=== PATIENT | female | born 1955 | race Caucasian/White ===

== ENCOUNTER 2018-12-18 10:14 | Inpatient (IN) | payer MEDICARE, BC ==
[2018-12-16 14:49] LABS: BASOPHILS # (AUTO) 0.1 X10'3 (0-0.2); BASOPHILS % (AUTO) 0.8 % (0-1); EOSINOPHILS # (AUTO) 0.1 X10'3 (0-0.9); EOSINOPHILS % (AUTO) 1.8 % (0-6); LYMPHOCYTES # (AUTO) 1.5 X10'3 (1.1-4.8); LYMPHOCYTES % (AUTO) 22.5 % (21-51); MEAN CORPUSCULAR HGB CONC 33.5 g/dL (33.0-36.5); MEAN CORPUSCULAR VOLUME 86.5 FL (78-98); MONOCYTES # (AUTO) 0.4 X10'3 (0-0.9); MONOCYTES % (AUTO) 6.4 % (2-12); NEUTROPHILS # (AUTO) 4.5 X10'3 (1.8-7.7); NEUTROPHILS % (AUTO) 68.5 % (42-75); PRE OP HEMATOCRIT 38.8 % (35.0-45.0); PRE OP PLATELET COUNT 319 X10'3 (140-440); RED BLOOD COUNT 4.49 X10'6 (4.20-5.60); RED CELL DISTRIBUTION WIDTH 13.8 % (11.5-14.5)
[2018-12-16 15:00] LABS: ALBUMIN 3.7 G/DL (3.4-5.0); ALKALINE PHOSPHATASE 87 IU/L (46-116); BLOOD UREA NITROGEN 12 MG/DL (7-18); BUN/CREATININE RATIO 16.9 (6.6-38.0); CALCIUM 9.3 MG/DL (8.5-10.1); CHLORIDE 106 MMOL/L (99-107); CREATININE 0.71 MG/DL (0.40-0.90); PRE OP ALT 40 U/L (30-65); PRE OP ANION GAP 7 (8-16); PRE OP AST 23 U/L (10-37); PRE OP BILIRUB, TOTAL 0.4 MG/DL (0.0-1.0); PRE OP GLUCOSE 121 MG/DL (70-104); PRE OP POTASSIUM 3.8 MMOL/L (3.4-5.1); PRE OP SODIUM 143 MMOL/L (135-145); TOTAL CARBON DIOXIDE 30.2 MMOL/L (24-32); TOTAL PROTEIN 7.5 G/DL (6.4-8.2); eGFR 83 ML/MIN
[2018-12-16 15:03] LABS: CLARITY,URINE SLIGHTLY CLOUDY (Clear); COLOR,URINE YELLOW (Yellow); GLUCOSE, URINE NEGATIVE (Neg); KETONES,URINE NEGATIVE (Neg); LEUKOCYTE ESTERASE ,URINE TRACE (Neg); NITRITES, URINE NEGATIVE (Neg); OCCULT BLOOD,URINE NEGATIVE (Neg); PH,URINE 5.5 (4.8-8.0); PROTEIN,URINE NEGATIVE (Neg); UROBILINOGEN,URINE 0.2 E.U/dL (0.2-1.0)
[2018-12-16 15:16] LABS: UA COLLECTION TYPE VOIDED
[2018-12-16 15:17] LABS: BACTERIA,URINE NONE SEEN /HPF (Neg); RBC,URINE NONE SEEN /HPF (0-2); SQUAMOUS EPITHELIAL CELL,UR FEW /LPF (FEW); WBC,URINE 0-4 /HPF (0-4)
[~2018-12-18] VITALS: Ht 157.5 cm; Wt 92.0 kg
[2018-12-18] VITALS (17 sets, daily range): BP systolic 115–177; BP diastolic 64–90
[~2018-12-18 10:14] MED LIST: CELE-193 PO; LOSA50TA3 PO; ceFOXitin 2 GM ADDVANTGE BAG 50 ML IV ONE; cefotetan 2gm/isosm dext IVPB 50 ML IV ONE; famotidine 20mg tablet PO ONE; meperidine/PF 25mg/ml syringe IV PRN; morphine 4 MG/ML inj SYRINge IV PRN; ondansetron/PF 4mg/2ml inj IV PRN; proCHLORperazine 10 MG/2 ml inj IV PRN; ringers solution, lacted 1,000 ML IV SCH
[2018-12-18] MEDS: ringers solution, lacted 1,000 ML IV SCH ×4 (10:57→21:44)
[2018-12-18] MEDS ORDERED: BUPIVAcaine/PF 2.5 mg/ml (0.25%) 30ml vial ONE (11:25)
[2018-12-18] MEDS ORDERED: epiNEPHrine 1 mg/ml inj ONE (11:25)
[2018-12-18] MEDS ORDERED: BUPIVAcaine/PF 2.5mg/ml (0.25%) 10ml vial ONE (11:25)
[2018-12-18] MEDS ORDERED: sevoflurane 250ml liquid IH ONE (13:06)
[2018-12-18] MEDS ORDERED: neostigmine methylsulfate 1 MG/ML 10ml vial ONE (13:06)
[2018-12-18] MEDS ORDERED: ondansetron/PF 4mg/2ml inj ONE (13:06)
[2018-12-18] MEDS ORDERED: midazolam 2 mg/2 ml injection ONE (13:14)
[2018-12-18] MEDS ORDERED: fentaNYL /PF 50mcg/ml 5ml ampule ONE (13:14)
[2018-12-18] MEDS ORDERED: propofol inj 20 ML IV ONE (13:16)
[2018-12-18] MEDS ORDERED: LIDOcaine 2% (20mg/ml) 5ml vial ONE (13:16)
[2018-12-18] MEDS ORDERED: dexamethasone sod phosphate 4mg/ml inj. ONE (13:25)
[2018-12-18] MEDS ORDERED: rocuronium 10mg/ml inj IV ONE (13:25)
[2018-12-18] MEDS ORDERED: clindamycin-Cleocin 900mg/D5W 50 ML IV ONE (13:30)
[2018-12-18] MEDS ORDERED: sodium bicarbonate (8.4%) 1 mEq/ml syringe ONE (14:00)
[2018-12-18] MEDS ORDERED: epiNEPHrine 0.1mg/ml 10ml syringe ONE ×3 (14:00)
[2018-12-18] MEDS ORDERED: sod chloride 0.9% 10ml flush syringe IV ONE ×4 (14:00)
[2018-12-18] MEDS ORDERED: dextrose 50%-water 50ml dispensing syringe IV ONE (14:00)
[2018-12-18] MEDS ORDERED: calcium chloride 100 MG/1 ML inj IV ONE ×3 (14:00)
[2018-12-18] MEDS ORDERED: DOBUTamine/D5W 500mg/250ml premix IV ONE (14:00)
[2018-12-18] MEDS ORDERED: ketorolac trometh. 30mg/ml inj. ONE (15:01)
[2018-12-18] MEDS ORDERED: metoclopramide 5 mg/ml inj IV PRN (15:05)
[2018-12-18] MEDS ORDERED: HYDROcodone/acetaminophen 10/325mg tab PO PRN (15:05)
[2018-12-18] MEDS ORDERED: LORazepam 2 mg/ml vial IV PRN (15:05)
[2018-12-18] MEDS ORDERED: temazepam 15mg capsule PO PRN (15:05)
[2018-12-18] MEDS ORDERED: magnesium hydroxide 30ml (MOM) UD suspension PO PRN (15:05)
[2018-12-18] MEDS ORDERED: diphenhydrAMINE 50 mg/ml inj IV PRN (15:05)
[2018-12-18] MEDS ORDERED: normal saline 500ml IV soln 500 ML IV PRN (15:05)
[2018-12-18] MEDS ORDERED: glycopyrrolate 0.2mg/ml inj ONE (15:07)
--- NOTE | 2018-12-18 15:16 | NUR ---
Received from OR via SURGICAL BED , accompanied by Anesthesiologist NATALY and report given by Anesthesiolgist. PATIENT WITH OLD COLOSTOMY TO LEFT SIDE OF ABDOMEN, DARÍO PAD IN PLACE. NO DRAINAGE PRESENT AT THIS TIME. PATIENT WITH 10L MASK ON WITH 97% SATURATIONS. VSS. PATIENT MEDICATED FOR PAIN UPON ARRIVAL Addendum: 12/18/18 at 1528 by Oscar Dill RN, RN Amended: Links added.
--- NOTE | 2018-12-18 16:26 | NUR ---
ALL CRITERIA FOR TRANSFER TO THE FLOOR HAS BEEN ACHIEVED. VSS. BED LOW, CALL LIGHT AND VS. SET IN PLACE. RN PRESENT TO ACCEPT CARE. PATIENT RESTING COMFORTABLY IN BED. BELONGINGS SENT WITH PATIENT. DRESSINGS CDI. ATTEMPTED TO VOID VIA BEDPAN IN BED, NO SUCCESS. GOT UP TO [facility] AND ATTEMPTED AGAIN ONLY TO HAVE 15CC OF CLEAR YELLOW URINE. PATIENT ASSISTED BACK TO BED AND BLADDER SCANNED SEVERAL TIMES ONLY TO REVEAL 39CC. MACKENZIE PENA NOTIFIED OF THIS AND WILL REPORT IT TO LINCOLN. ADDENDUM: LOW ABDOMINAL INCISION LINE IS CDI. Addendum: 12/18/18 at 1635 by Oscar Dill RN, RN Amended: Links added.
--- NOTE | 2018-12-18 16:45 | NUR ---
Patient was in room after being situated by resource nurse, Patient was started on post op vitals, incision dressing inspected and patient metal status was assessed at this time. Upon receiving patient CT took patient directly down for scan with contrast. Patient was transfered to a [facility] at this time.
[2018-12-18] MEDS ORDERED: diatrozoate meglu/diatrozoate sod (37% iodine) 120ML oral solution ONE (16:57)
[2018-12-18] MEDS ORDERED: HYDROmorphone 1 mg/ml syringe IV PRN (17:30)
--- NOTE | 2018-12-18 17:30 | NUR ---
Patient returned from CT was started back on post op vitals fluids resumed and pain was addressed.
[2018-12-18] MEDS: losartan 50mg tablet PO SCH (17:45)
[2018-12-18] MEDS: HYDROcodone/acetaminophen 10/325mg tab PO PRN (18:14)
--- NOTE | 2018-12-18 18:30 | NUR ---
Problems reprioritized. Patient report given, questions answered & plan of care reviewed with Pravin MANN.
--- NOTE | 2018-12-18 20:00 | NUR ---
PATIENT BLADDER SCAN 268ML AND VOIDED 150ML
[2018-12-18] MEDS: diatr meglu/diatrizoate 30ml oral sol.-(3 dose) bottle PO SCH (21:00)
[2018-12-18] MEDS: docusate sod 100mg capsule PO SCH (21:46)
[2018-12-19] VITALS: BP 130/73
[2018-12-19] MEDS: HYDROcodone/acetaminophen 10/325mg tab PO PRN ×2 (01:25→08:07)
[2018-12-19] MEDS: ondansetron/PF 4mg/2ml inj IV PRN ×2 (04:53→11:23)
[2018-12-19] MEDS: ringers solution, lacted 1,000 ML IV SCH ×3 (04:57→22:33)
--- NOTE | 2018-12-19 05:00 | NUR ---
BLADDER SCAN 223ML VOIDED 150ML.
[2018-12-19 05:24] LABS: BASOPHILS % (AUTO) 0 % (0-1); EOSINOPHILS % (AUTO) 0 % (0-6); HEMATOCRIT 37.9 % (35.0-45.0); LYMPHOCYTES # (AUTO) 0.6 X10'3 (1.1-4.8); LYMPHOCYTES % (AUTO) 5.4 % (21-51); MEAN CORPUSCULAR HGB CONC 34.2 g/dL (33.0-36.5); MEAN CORPUSCULAR VOLUME 84.7 FL (78-98); MEAN PLATELET VOLUME 6.7 FL (7.4-10.4); MONOCYTES # (AUTO) 0.8 X10'3 (0-0.9); MONOCYTES % (AUTO) 6.7 % (2-12); NEUTROPHILS # (AUTO) 10.2 X10'3 (1.8-7.7); NEUTROPHILS % (AUTO) 87.9 % (42-75); PLATELET COUNT 304 X10'3 (140-440); RED BLOOD COUNT 4.48 X10'6 (4.20-5.60); RED CELL DISTRIBUTION WIDTH 13.6 % (11.5-14.5); WHITE BLOOD COUNT 11.6 X10'3 (4.5-11.0)
[2018-12-19 05:26] LABS: ALBUMIN 3.1 G/DL (3.4-5.0); ANION GAP 9 (8-16); BLOOD UREA NITROGEN 12 MG/DL (7-18); BUN/CREATININE RATIO 18.8 (6.6-38.0); CALCIUM 7.7 MG/DL (8.5-10.1); CHLORIDE 105 MMOL/L (99-107); CREATININE 0.64 MG/DL (0.40-0.90); GLUCOSE 128 MG/DL (70-104); POTASSIUM 4.1 MMOL/L (3.5-5.1); SODIUM 139 MMOL/L (135-145); TOTAL CARBON DIOXIDE 24.8 MMOL/L (24-32); eGFR > 90 ML/MIN
--- NOTE | 2018-12-19 06:30 | NUR ---
Problems reprioritized. Patient report given, questions answered & plan of care reviewed with JP MANN.
[2018-12-19] MEDS: diatr meglu/diatrizoate 30ml oral sol.-(3 dose) bottle PO SCH (07:52)
[2018-12-19] MEDS: celeCOXIB 100mg capsule PO SCH (07:53)
[2018-12-19] MEDS: docusate sod 100mg capsule PO SCH ×2 (07:53→20:15)
[2018-12-19] MEDS: losartan 50mg tablet PO SCH (07:53)
[2018-12-19 08:00] VITALS: BP 130/68
[2018-12-19 11:00] VITALS: BP 116/68
--- NOTE | 2018-12-19 12:00 | NUR ---
BLADDER SCANNED 142 IN BLADDER
--- NOTE | 2018-12-19 12:53 | NUR ---
98/56 BP UNABLE TO ADMIN PAIN R/T BP
[2018-12-19 13:32] LABS: BASOPHILS % (AUTO) 0.2 % (0-1); EOSINOPHILS % (AUTO) 0 % (0-6); HEMATOCRIT 41.3 % (35.0-45.0); LYMPHOCYTES # (AUTO) 0.6 X10'3 (1.1-4.8); LYMPHOCYTES % (AUTO) 8.3 % (21-51); MEAN CORPUSCULAR HEMOGLOBIN 29.2 PG (27.0-31.0); MEAN CORPUSCULAR HGB CONC 33.9 g/dL (33.0-36.5); MEAN PLATELET VOLUME 6.8 FL (7.4-10.4); MONOCYTES # (AUTO) 0.3 X10'3 (0-0.9); MONOCYTES % (AUTO) 4.3 % (2-12); NEUTROPHILS # (AUTO) 6.3 X10'3 (1.8-7.7); NEUTROPHILS % (AUTO) 87.2 % (42-75); PLATELET COUNT 373 X10'3 (140-440); RED CELL DISTRIBUTION WIDTH 13.7 % (11.5-14.5); WHITE BLOOD COUNT 7.2 X10'3 (4.5-11.0)
--- NOTE | 2018-12-19 15:32 | NUR ---
PT. AMBULATED 600 FT. WITH FWW WITH ONE PERSON MIN. ASSIST. VOIDED 50 ML. BLADDER SCANNED 180 ML IN BLADDER.
[2018-12-19] MEDS ORDERED: oxyCODONE/APAP 10/325mg tablet PO PRN ×2 (15:40)
[2018-12-19] MEDS ORDERED: ketorolac tromethamine 15mg/ml inj. IM SCH (15:40)
[2018-12-19] MEDS ORDERED: ketorolac tromethamine 15mg/ml inj. IM PRN (15:55)
[2018-12-19] MEDS: ketorolac tromethamine 15mg/ml inj. IV PRN (16:01)
--- NOTE | 2018-12-19 18:03 | NUR ---
UPDATED ON PT'S STATUS. HE IS AWARE SHE HAS HAD 0 GAS OR OUTPUT OF COLOSTOMY, THAT THE PT. HAS HAD 1250 INTAKE AND 500 OUTPUT URINE, THAT THE PT. NOW HAS F/C, AND THAT THE PT'S MOST RECENT BP 93/51. NOT CONCERNED BECAUSE LABS SHOW PROGRESS CONCERNING H AND H. WILL CONT. TO MONITOR FOR THE REMAINDER OF MY SHIFT.
[2018-12-19 18:05] VITALS: BP 93/51
[2018-12-19 19:00] VITALS: BP 96/54
--- NOTE | 2018-12-19 19:27 | NUR ---
GAVE REPORT TO LARRY MANN.
[2018-12-19] MEDS ORDERED: furosemide 20 MG/2 ML vial IV ONE (22:00)
--- NOTE | 2018-12-19 22:00 | NUR ---
Phoned Dr. Nielsen as pts has had low urine out put 20ml of dark green/yellow in f/c despite her walking 2 laps, that her BP is 91/55 with hr of 99. No Gas or stool and hypoactive BS. Nurse voiced concern for liver problems. Dr khalida Hadley, tatiana and RAGHU for am. Addendum: 12/19/18 at 2220 by Naila Hernandez RN Amended: Links added.
[2018-12-19] MEDS: metoclopramide 5 mg/ml inj IV SCH (22:20)
[2018-12-20] VITALS (26 sets, daily range): BP systolic 68–155; BP diastolic 40–103
[2018-12-20] MEDS: metoclopramide 5 mg/ml inj IV SCH ×2 (03:03→07:15)
[2018-12-20] MEDS: ketorolac tromethamine 15mg/ml inj. IV PRN (03:44)
[2018-12-20 06:10] LABS: MEAN PLATELET VOLUME 7.5 FL (7.4-10.4)
[2018-12-20 06:12] LABS: HEMATOCRIT 38.8 % (35.0-45.0); HEMOGLOBIN 13.1 g/dl (12.0-16.0); MEAN CORPUSCULAR HEMOGLOBIN 29.4 PG (27.0-31.0); MEAN CORPUSCULAR HGB CONC 33.7 g/dL (33.0-36.5); MEAN CORPUSCULAR VOLUME 87.4 FL (78-98); PLATELET COUNT 349 X10'3 (140-440); RED BLOOD COUNT 4.44 X10'6 (4.20-5.60); RED CELL DISTRIBUTION WIDTH 14.1 % (11.5-14.5)
[2018-12-20 06:18] LABS: ALANINE AMINOTRANSFERASE 28 U/L (12-78); ALBUMIN 2.1 G/DL (3.4-5.0); ALBUMIN/GLOBULIN RATIO 0.7 (1.1-1.5); ALKALINE PHOSPHATASE 51 IU/L (46-116); ANION GAP 12 (8-16); ASPARTATE AMINO TRANSFERASE 34 U/L (10-37); BILIRUBIN,TOTAL 0.9 MG/DL (0.1-1.0); BLOOD UREA NITROGEN 34 MG/DL (7-18); BUN/CREATININE RATIO 13.9 (6.6-38.0); CALCIUM 7.5 MG/DL (8.5-10.1); CHLORIDE 102 MMOL/L (99-107); CREATININE 2.44 MG/DL (0.40-0.90); GLUCOSE 127 MG/DL (70-104); SODIUM 136 MMOL/L (135-145); TOTAL CARBON DIOXIDE 21.8 MMOL/L (24-32); TOTAL PROTEIN 5.3 G/DL (6.4-8.2); eGFR 20 ML/MIN
[2018-12-20 06:23] LABS: POTASSIUM 3.7 MMOL/L (3.5-5.1)
--- NOTE | 2018-12-20 06:57 | NUR ---
Problems reprioritized. Patient report given, questions answered & plan of care reviewed with Candy MANN. Addendum: 12/20/18 at 0658 by Naila Hernandez RN Amended: Links added.
[2018-12-20 07:02] LABS: ANISOCYTOSIS 1+; PLATELET ESTIMATE NORMAL; TOTAL CELLS COUNTED 100
[2018-12-20] MEDS: ringers solution, lacted 1,000 ML IV SCH (07:11)
[2018-12-20] MEDS: docusate sod 100mg capsule PO SCH ×2 (07:15→20:00)
[2018-12-20] MEDS: celeCOXIB 100mg capsule PO SCH (07:16)
[2018-12-20] MEDS: losartan 50mg tablet PO SCH (07:29)
[2018-12-20] MEDS ORDERED: magnesium citrate 296ml oral solution PO ONE (07:30)
[2018-12-20] MEDS: normal saline 1000ml 1,000 ML IV SCH ×3 (07:44→23:30)
[2018-12-20] MEDS ORDERED: normal saline 1000ml 1,000 ML IV ONE (09:10)
--- NOTE | 2018-12-20 09:39 | NUR ---
patient distressed when came on shift c/o of pain. B/P 87/51, HR 110, patient medicated with no effect. Seen by DR Nielsen, NS bolus ordered. chest xray and EKG. Seen then by Dr Lyons and Ngoc Higgins , to be transferred to ICU, awaiting bed.
[2018-12-20] MEDS ORDERED: metoclopramide 5 mg/ml inj IV PRN (09:40)
[2018-12-20] MEDS ORDERED: vancomycin/NS 1 GM ADD-VANTAGE 250 ML IV SCH (10:00)
--- NOTE | 2018-12-20 10:50 | NUR ---
Patient arrived to 2013 by eric, transferred to bed, and placed on monitor; sinus tachycardia, hypotensive, alert and oriented, but in extreme pain Addendum: 12/20/18 at 1103 by Nba Putnam RN in her abdomen, which is distended and bruised
--- NOTE | 2018-12-20 11:01 | NUR ---
Problems reprioritized. Patient report given, questions answered & plan of care reviewed with Nba MANN. patient transferred over to 2014a
[2018-12-20] MEDS ORDERED: vancomycin inj 500 MG in normal saline 100ml IV soln 100 ML IV ONE (11:40)
[2018-12-20 11:56] LABS: ABG BASE EXCESS -6.6 mmol/L (-2.0-3.0); ABG HCO3 18.7 mmol/L (22.0-26.0); ABG PCO2 (T) 36.9 mmHg (35.0-45.0); ABG PH (T) 7.323 (7.350-7.450); ABG PO2 (T) 63.1 mmHg (83-108); ALLEN'S TEST Positive; FCOHb 0.5 % (0.5-1.5); FLOW 6 L/min; FMetHb 0.3 % (0.3-1.12); FO2Hb 90.3 % (94-100); TOTAL HEMOGLOBIN 12.8 G/dl (12.0-16.0)
[2018-12-20 12:07] LABS: BASOPHILS % (AUTO) 0 % (0-1); EOSINOPHILS % (AUTO) 0.6 % (0-6); HEMATOCRIT 38.8 % (35.0-45.0); HEMOGLOBIN 12.9 g/dl (12.0-16.0); LYMPHOCYTES # (AUTO) 0.2 X10'3 (1.1-4.8); LYMPHOCYTES % (AUTO) 13.1 % (21-51); MEAN CORPUSCULAR HEMOGLOBIN 28.9 PG (27.0-31.0); MEAN CORPUSCULAR HGB CONC 33.2 g/dL (33.0-36.5); MEAN CORPUSCULAR VOLUME 87.2 FL (78-98); MONOCYTES % (AUTO) 2.3 % (2-12); NEUTROPHILS # (AUTO) 1.6 X10'3 (1.8-7.7); PLATELET COUNT 285 X10'3 (140-440); RED BLOOD COUNT 4.46 X10'6 (4.20-5.60); WHITE BLOOD COUNT 1.9 X10'3 (4.5-11.0)
[2018-12-20 12:22] LABS: ALANINE AMINOTRANSFERASE 29 U/L (12-78); ALBUMIN/GLOBULIN RATIO 0.6 (1.1-1.5); ALKALINE PHOSPHATASE 64 IU/L (46-116); ANION GAP 12 (8-16); ASPARTATE AMINO TRANSFERASE 49 U/L (10-37); BLOOD UREA NITROGEN 42 MG/DL (7-18); BUN/CREATININE RATIO 14.1 (6.6-38.0); CALCIUM 7.1 MG/DL (8.5-10.1); CHLORIDE 104 MMOL/L (99-107); CREATININE 2.97 MG/DL (0.40-0.90); GLUCOSE 112 MG/DL (70-104); POTASSIUM 3.3 MMOL/L (3.5-5.1); SODIUM 137 MMOL/L (135-145); TOTAL CARBON DIOXIDE 20.7 MMOL/L (24-32); TOTAL PROTEIN 5.2 G/DL (6.4-8.2); eGFR 16 ML/MIN
[2018-12-20 12:24] LABS: PARTIAL THROMBOPLASTIN TIME 33 SECONDS (22-32)
--- NOTE | 2018-12-20 12:47 | NUR ---
Critical labs reported to Dr. Mota
[2018-12-20] MEDS ORDERED: NORepinephrine 8mg/ 250ml NS 250 ML IV ONE ×2 (13:12→20:20)
[2018-12-20] MEDS ORDERED: diatr meglu/diatrizoate 30ml oral sol.-(3 dose) bottle PO STA (13:43)
[2018-12-20] MEDS ORDERED: ringers solution, lacted 1,000 ML IV SCH (13:50)
[2018-12-20] MEDS ORDERED: piperacillin/tazo 4.5gm/100ml 100 ML IV SCH (14:00)
--- NOTE | 2018-12-20 14:04 | NUR ---
patient developed slurred speech and difficulty talking. No other SS of stroke. Dr Mota notified. He wants to wait to see if she improves after getting her IV abx
[2018-12-20] MEDS: metroNIDAZOLE-Flagyl 500mg/NS 100 ML IV SCH ×2 (14:13→22:30)
[2018-12-20] MEDS ORDERED: diatr meglu/diatrizoate 30ml oral sol.-(3 dose) bottle PO ONE (15:00)
[2018-12-20 15:06] LABS: OXYGEN SATURATION (MIXED VEN) 65.9 % (60-80); PO2 MIXED VENOUS (TEMP COR) 34.2 mmHg (35-46)
[2018-12-20] MEDS ORDERED: clindamycin phosphate 150mg/ml inj. ONE (15:13)
[2018-12-20] MEDS ORDERED: LIDOcaine 1% (10mg/ml) 2ml vial ONE (15:13)
[2018-12-20] MEDS ORDERED: gentamicin 40 MG/1 ML inj ONE (15:13)
[2018-12-20] MEDS: albumin (Human) 5% 250ml 250 ML IV SCH ×4 (15:25→18:05)
--- NOTE | 2018-12-20 15:29 | NUR ---
Patient received 1L NS prior to transfer, then 1L LR.
[2018-12-20] MEDS ORDERED: fentaNYL /PF 50mcg/ml 5ml ampule ONE (15:37)
--- NOTE | 2018-12-20 15:38 | NUR ---
patient left for OR
[2018-12-20] MEDS ORDERED: ePHEDrine 50MG/ML INJ. ONE (15:42)
[2018-12-20] MEDS ORDERED: sevoflurane 250ml liquid IH ONE (15:42)
[2018-12-20] MEDS ORDERED: NORepinephrine bitartrate 8 MG in NS 250 ML BAG (32 mcg/ml) IV ONE (15:42)
[2018-12-20] MEDS ORDERED: albuterol 60 PUFF/8GM Inhaler IH ONE (15:42)
[2018-12-20] MEDS: VASOPRESSIN IV SCH (16:05)
[2018-12-20] MEDS: NS IV SCH (16:05)
[2018-12-20] MEDS: piperacillin/tazo 4.5gm/100ml 100 ML IV SCH (18:00)
[2018-12-20 18:05] LABS: ISTAT CREATININE 2.9 mg/dL (0.6-1.1); ISTAT HGB 8.2 g/dl (12.0-16.0); ISTAT IONIZED CALCIUM 0.87 mmol/L (1.03-1.32); ISTAT K 3.8 mmol/L (3.5-5.1); POC BUN/CREATININE RATIO 12.1 (6.6-38.0)
[2018-12-20 18:15] LABS: ABG BASE EXCESS -11.3 mmol/L (-2.0-3.0); ABG HCO3 15.4 mmol/L (22.0-26.0); ABG OXYGEN SATURATION 86.9 % (95-98); ABG PCO2 (T) 36.3 mmHg (35.0-45.0); ABG PH (T) 7.241 (7.350-7.450); ABG PO2 (T) 56.2 mmHg (83-108); FCOHb 0.3 % (0.5-1.5); FMetHb 0.3 % (0.3-1.12); FO2Hb 86.4 % (94-100); TOTAL HEMOGLOBIN 8.5 G/dl (12.0-16.0)
[2018-12-20 18:16] LABS: ISTAT TCO2 CONFIRMATION 13.3 mmol/l
[2018-12-20 18:56] LABS: ABG BASE EXCESS -11.9 mmol/L (-2.0-3.0); ABG HCO3 14.8 mmol/L (22.0-26.0); ABG OXYGEN SATURATION 90.2 % (95-98); ABG PCO2 (T) 33.4 mmHg (35.0-45.0); ABG PH (T) 7.252 (7.350-7.450); ABG PO2 (T) 55.5 mmHg (83-108); FCOHb 0.3 % (0.5-1.5); FMetHb 0.1 % (0.3-1.12); FO2Hb 89.8 % (94-100); TOTAL HEMOGLOBIN 9.4 G/dl (12.0-16.0)
[2018-12-20] MEDS: NORepinephrine 8mg/ 250ml NS 250 ML IV SCH (20:25)
[2018-12-20] MEDS ORDERED: rocuronium 10mg/ml inj IV ONE ×2 (20:30→20:32)
[2018-12-20] MEDS ORDERED: glycopyrrolate 0.2mg/ml inj ONE (20:31)
[2018-12-20] MEDS ORDERED: ketorolac trometh. 30mg/ml inj. ONE (20:31)
[2018-12-20] MEDS ORDERED: etomidate 2mg/ml inj. ONE (20:32)
[2018-12-20] MEDS ORDERED: propofol inj 20 ML IV ONE (20:32)
[2018-12-20] MEDS ORDERED: LIDOcaine 2% (20mg/ml) 5ml vial ONE (20:32)
[2018-12-20] MEDS ORDERED: dextrose 50%-water 50ml dispensing syringe IV ONE (20:40)
[2018-12-20 20:56] LABS: BASOPHILS % (AUTO) 0.2 % (0-1); EOSINOPHILS % (AUTO) 1.4 % (0-6); HEMATOCRIT 25.1 % (35.0-45.0); HEMOGLOBIN 8.2 g/dl (12.0-16.0); LYMPHOCYTES # (AUTO) 0.5 X10'3 (1.1-4.8); MEAN CORPUSCULAR HEMOGLOBIN 29.7 PG (27.0-31.0); MEAN CORPUSCULAR HGB CONC 32.7 g/dL (33.0-36.5); MEAN CORPUSCULAR VOLUME 90.8 FL (78-98); MEAN PLATELET VOLUME 7.4 FL (7.4-10.4); MONOCYTES % (AUTO) 2.5 % (2-12); NEUTROPHILS # (AUTO) 1.3 X10'3 (1.8-7.7); NEUTROPHILS % (AUTO) 70.9 % (42-75); PLATELET COUNT 147 X10'3 (140-440); RED BLOOD COUNT 2.77 X10'6 (4.20-5.60); RED CELL DISTRIBUTION WIDTH 14.2 % (11.5-14.5); WHITE BLOOD COUNT 1.9 X10'3 (4.5-11.0)
[2018-12-20 21:06] LABS: ABG BASE EXCESS -17.4 mmol/L (-2.0-3.0); ABG OXYGEN SATURATION 90.1 % (95-98); ABG PCO2 (T) 42.4 mmHg (35.0-45.0); ABG PH (T) 7.063 (7.350-7.450); ABG PO2 (T) 72.4 mmHg (83-108); FCOHb 0.3 % (0.5-1.5); FO2Hb 89.8 % (94-100); MINUTE VOLUME 9 L/min; PEEP 5 cm H2O; RESPIRATORY RATE 16 b/min; RESPIRATORY RATE (OBSERVED) 16 b/min; TIDAL VOLUME 525 mL; TOTAL HEMOGLOBIN 8.7 G/dl (12.0-16.0)
[2018-12-20 21:13] LABS: ALANINE AMINOTRANSFERASE 49 U/L (12-78); ALBUMIN 1.7 G/DL (3.4-5.0); ALBUMIN/GLOBULIN RATIO 1.1 (1.1-1.5); ALKALINE PHOSPHATASE 29 IU/L (46-116); ANION GAP 19 (8-16); ASPARTATE AMINO TRANSFERASE 107 U/L (10-37); BILIRUBIN,TOTAL 1.2 MG/DL (0.1-1.0); BLOOD UREA NITROGEN 38 MG/DL (7-18); BUN/CREATININE RATIO 12.8 (6.6-38.0); CHLORIDE 114 MMOL/L (99-107); CREATININE 2.96 MG/DL (0.40-0.90); GLUCOSE 66 MG/DL (70-104); POTASSIUM 4.6 MMOL/L (3.5-5.1); SODIUM 148 MMOL/L (135-145); TOTAL PROTEIN 3.3 G/DL (6.4-8.2); eGFR 16 ML/MIN
[2018-12-20 21:17] LABS: TOTAL CARBON DIOXIDE 14.6 MMOL/L (24-32)
[2018-12-20 21:22] LABS: PARTIAL THROMBOPLASTIN TIME 78 SECONDS (22-32)
[2018-12-20] MEDS ORDERED: FENTANYL-0.9 % NACL/PF 100 ML IV PRN (21:34)
[2018-12-20] MEDS ORDERED: midazolam 100mg in NS 100ml 100 ML IV PRN (21:34)
[2018-12-20] MEDS ORDERED: calcium chloride 100 MG/1 ML inj IV ONE (21:35)
[2018-12-20] MEDS: sodium bicarbonate (8.4%) inj. 75 MEQ in dextrose 5% water 500ml 500 ML IV SCH (22:00)
[2018-12-20] MEDS ORDERED: calcium chloride inj. 1,000 MG in normal saline 100ml IV soln 90 ML IV ONE (22:10)
[2018-12-20 23:11] LABS: OXYGEN SATURATION (MIXED VEN) 69.1 % (60-80)
[2018-12-20 23:11] LABS: ABG BASE EXCESS -17.9 mmol/L (-2.0-3.0); ABG HCO3 10.8 mmol/L (22.0-26.0); ABG OXYGEN SATURATION 85.8 % (95-98); ABG PCO2 (T) 35.8 mmHg (35.0-45.0); ABG PH (T) 7.095 (7.350-7.450); ABG PO2 (T) 60.2 mmHg (83-108); FCOHb 0.3 % (0.5-1.5); FMetHb 0.3 % (0.3-1.12); FO2Hb 85.3 % (94-100); MINUTE VOLUME 13 L/min; PATIENT TEMPERATURE 36.3; PEEP 5 cm H2O; RESPIRATORY RATE 20 b/min; RESPIRATORY RATE (OBSERVED) 23 b/min; TIDAL VOLUME 550 mL; TOTAL HEMOGLOBIN 9.5 G/dl (12.0-16.0)
--- NOTE | 2018-12-20 23:17 | NUR ---
2100..Received to room 2014, accompanied by Noam Edmonds and surgical crew. See assessment records. Lucia/PAline/CVPline and IVs noted in IV assessment records. All sites without redness or swelling. Vasoactive drugs infusing per [facility].
[2018-12-21] VITALS (64 sets, daily range): BP systolic 24–178; BP diastolic 6–108
[2018-12-21] MEDS: sodium bicarbonate (8.4%) inj. 75 MEQ in dextrose 5% water 500ml 500 ML IV SCH ×7 (01:17→20:55)
[2018-12-21] MEDS: NORepinephrine 8mg/ 250ml NS 250 ML IV SCH ×4 (01:17→18:38)
--- NOTE | 2018-12-21 01:26 | NUR ---
2200..Assessment as noted, Family at bedside. MD aware of current labs and medications.
[2018-12-21 03:05] LABS: BASOPHILS % (AUTO) 0.1 % (0-1); EOSINOPHILS % (AUTO) 3.7 % (0-6); HEMATOCRIT 28.2 % (35.0-45.0); HEMOGLOBIN 9.4 g/dl (12.0-16.0); LYMPHOCYTES # (AUTO) 0.4 X10'3 (1.1-4.8); LYMPHOCYTES % (AUTO) 30.2 % (21-51); MEAN CORPUSCULAR HGB CONC 33.4 g/dL (33.0-36.5); MEAN CORPUSCULAR VOLUME 89.9 FL (78-98); MONOCYTES % (AUTO) 1.9 % (2-12); NEUTROPHILS # (AUTO) 0.9 X10'3 (1.8-7.7); NEUTROPHILS % (AUTO) 64.1 % (42-75); PLATELET COUNT 127 X10'3 (140-440); RED BLOOD COUNT 3.14 X10'6 (4.20-5.60); RED CELL DISTRIBUTION WIDTH 14.3 % (11.5-14.5); WHITE BLOOD COUNT 1.3 X10'3 (4.5-11.0)
[2018-12-21 03:17] LABS: ALANINE AMINOTRANSFERASE 564 U/L (12-78); ALBUMIN 1.8 G/DL (3.4-5.0); ALKALINE PHOSPHATASE 46 IU/L (46-116); ANION GAP 22 (8-16); ASPARTATE AMINO TRANSFERASE 874 U/L (10-37); BILIRUBIN,TOTAL 1.4 MG/DL (0.1-1.0); BLOOD UREA NITROGEN 41 MG/DL (7-18); BUN/CREATININE RATIO 11.9 (6.6-38.0); CALCIUM 6.2 MG/DL (8.5-10.1); CHLORIDE 110 MMOL/L (99-107); CREATININE 3.45 MG/DL (0.40-0.90); GLUCOSE 74 MG/DL (70-104); MAGNESIUM 1.9 MG/DL (1.5-2.4); PHOSPHORUS 6.7 MG/DL (2.3-4.5); SODIUM 144 MMOL/L (135-145); TOTAL PROTEIN 3.6 G/DL (6.4-8.2); eGFR 13 ML/MIN
[2018-12-21 03:22] LABS: POTASSIUM 4.6 MMOL/L (3.5-5.1)
[2018-12-21 03:26] LABS: TOTAL CARBON DIOXIDE 11.7 MMOL/L (24-32)
[2018-12-21 03:38] LABS: PARTIAL THROMBOPLASTIN TIME 60 SECONDS (22-32)
[2018-12-21 03:45] LABS: ABG BASE EXCESS -17.7 mmol/L (-2.0-3.0); ABG HCO3 10.6 mmol/L (22.0-26.0); ABG OXYGEN SATURATION 92.5 % (95-98); ABG PCO2 (T) 33.3 mmHg (35.0-45.0); ABG PH (T) 7.116 (7.350-7.450); ABG PO2 (T) 76.7 mmHg (83-108); FCOHb 0.4 % (0.5-1.5); FMetHb 0.3 % (0.3-1.12); FO2Hb 91.9 % (94-100); MINUTE VOLUME 12 L/min; PATIENT TEMPERATURE 36.5; PEEP 5 cm H2O; RESPIRATORY RATE 20 b/min; RESPIRATORY RATE (OBSERVED) 21 b/min; TIDAL VOLUME 550 mL; TOTAL HEMOGLOBIN 9.2 G/dl (12.0-16.0)
[2018-12-21] MEDS ORDERED: albumin (Human) 5% 250ml 250 ML IV ONE ×2 (04:00→04:08)
[2018-12-21] MEDS ORDERED: calcium chloride 100 MG/1 ML inj IV ONE ×4 (04:05→17:15)
[2018-12-21 04:14] LABS: ANISOCYTOSIS 1+; NUCLEATED RED BLOOD CELLS 17 /100WBC (0-0); PLATELET ESTIMATE DECREASED; POLYCHROMASIA FEW; TOTAL CELLS COUNTED 100
[2018-12-21] MEDS ORDERED: calcium chloride inj. 1,000 MG in normal saline 100ml IV soln 90 ML IV ONE (04:15)
--- NOTE | 2018-12-21 04:42 | NUR ---
0430.. notified of decreasing BP, abnormal lab values, and pt status, orders received. Pt attempts to follow commands, but remains sleepy.
[2018-12-21] MEDS: metroNIDAZOLE-Flagyl 500mg/NS 100 ML IV SCH ×2 (05:09→14:52)
[2018-12-21] MEDS: piperacillin/tazo 4.5gm/100ml 100 ML IV SCH ×2 (05:52→18:00)
--- NOTE | 2018-12-21 06:14 | NUR ---
0615..Problems reprioritized. Patient report given, questions answered & plan of care reviewed with Rachel MANN.
[2018-12-21] MEDS ORDERED: sodium bicarbonate (8.4%) 1 mEq/ml syringe ONE ×2 (06:18→13:02)
--- NOTE | 2018-12-21 06:18 | NUR ---
619..Call placed to , orders received.
[2018-12-21] MEDS ORDERED: sodium bicarbonate (8.4%) 1 mEq/ml syringe IV ONE ×4 (06:20→16:05)
[2018-12-21] MEDS ORDERED: albumin (human) 25% 100ml IV 200 ML IV ONE (06:58)
[2018-12-21] MEDS ORDERED: albumin (human) 25% 100 ML IV solution IV ONE (07:00)
--- NOTE | 2018-12-21 07:00 | NUR ---
pt has minimal movement, does not follow command to squeeze hands, flicker movement of toes noted, slight elevation of right arm and spontaneous movement of right hand noted, but unable to lift off bed, not at risk to pull lines, restraints dc Addendum: 12/21/18 at 1238 by Ashley Mariano RN Amended: Links added.
[2018-12-21] MEDS: docusate sod 100mg capsule PO SCH ×2 (08:00→20:00)
[2018-12-21] MEDS: celeCOXIB 100mg capsule PO SCH (08:00)
[2018-12-21] MEDS: phenylephrine inj 20 MG in normal saline 250ml IV soln 248 ML IV SCH ×2 (08:30→20:56)
[2018-12-21] MEDS ORDERED: dextrose 50%-water 50ml dispensing syringe IV ONE ×2 (08:42→16:05)
[2018-12-21] MEDS ORDERED: dextrose 50%-water 50ml dispensing syringe IV PRN ×2 (08:50)
[2018-12-21 09:45] LABS: ABG BASE EXCESS -21.1 mmol/L (-2.0-3.0); ABG HCO3 8.5 mmol/L (22.0-26.0); ABG OXYGEN SATURATION 85.8 % (95-98); ABG PCO2 (T) 35.8 mmHg (35.0-45.0); ABG PH (T) 6.993 (7.350-7.450); ABG PO2 (T) 67.9 mmHg (83-108); FCOHb 0.8 % (0.5-1.5); FMetHb 0.3 % (0.3-1.12); FO2Hb 84.9 % (94-100); MINUTE VOLUME 11 L/min; PEEP 5 cm H2O; RESPIRATORY RATE 20 b/min; RESPIRATORY RATE (OBSERVED) 21 b/min; TIDAL VOLUME 500 mL; TOTAL HEMOGLOBIN 6.4 G/dl (12.0-16.0)
[2018-12-21] MEDS ORDERED: VANCOmycin 1250MG/NS 250ml Bag 250 ML IV SCH (10:00)
--- NOTE | 2018-12-21 10:00 | NUR ---
domi at bedside, explained to daughter that mothers lab values are not normal, and BP is low, and is extremely sick, explained that is not taking spontaneous breaths on own, and that patients body is in extreme shock conditions, and we are supporting her breathing and blood pressure through medications. Explained that mother is very critical, and not making any improvement despite current treatments.
--- NOTE | 2018-12-21 10:00 | NUR ---
dr quinn at bedside apprized of patients status, lab valuues and lack of responsiveness.
[2018-12-21 10:39] LABS: ALBUMIN 2.2 G/DL (3.4-5.0); ANION GAP 30 (8-16); BLOOD UREA NITROGEN 41 MG/DL (7-18); BUN/CREATININE RATIO 10.1 (6.6-38.0); CALCIUM 6.4 MG/DL (8.5-10.1); CHLORIDE 106 MMOL/L (99-107); CREATININE 4.06 MG/DL (0.40-0.90); GLUCOSE 141 MG/DL (70-104); POTASSIUM 5.5 MMOL/L (3.5-5.1); SODIUM 146 MMOL/L (135-145); eGFR 11 ML/MIN
[2018-12-21 10:52] LABS: TOTAL CARBON DIOXIDE 9.8 MMOL/L (24-32)
--- NOTE | 2018-12-21 12:00 | NUR ---
pt has minimal response pupils sluggish to light, dr quinn aware
--- NOTE | 2018-12-21 12:04 | NUR ---
Initial: Pt intubated admit w/ shock and peritonitis following prior lysis for ovarian mass. Hx colostomy from prior colon CA w/ resection. Pt s/p extensive lysis of adhesions, resection of gangrenous distal sigmoid and proximal rectum. Possible stool contents in peritoneum pre-op. Portion of distal ileum also resected per MD note. L NG in place and new colostomy position currently clamped; plans to return to OR in 24-36 hours per surgeon note. LBM 12/16 per EMR. Weight changed 92kg bed scale vs 77kg standing scale on admit; standing likely more accurate w/ +5L fluid balance past 2 days giving ~82kg wt. Receiving Na/bicarb w/ dex for low GLU 42 this AM now corrected to 193. Will monitor for nutrition support needs post-op; recs below if NGTF to start per MD. Rec: 1. IF NGTF; Vital High Protein at 75ml/hr goal 2. IF TF; PALB Q /, daily wts 3. Monitor colostomy output post-op once no longer clamped 4. IF TF; promotility and opioid antagonist post-op per MD approval Addendum: 12/21/18 at [address] Amended: Links added.
--- NOTE | 2018-12-21 13:00 | NUR ---
dialysis line place under sterile procedure by dr quinn, pt tolerated well. no active bleeding noted, sterile drsg applied, slight oozing of blood noted from site of line, hemostatis achieved with pressure before drsg application
[2018-12-21 13:01] LABS: ABG BASE EXCESS -23.1 mmol/L (-2.0-3.0); ABG HCO3 7.2 mmol/L (22.0-26.0); ABG OXYGEN SATURATION 71.4 % (95-98); ABG PCO2 (T) 35.7 mmHg (35.0-45.0); ABG PH (T) 6.921 (7.350-7.450); ABG PO2 (T) 55.7 mmHg (83-108); FCOHb 0.4 % (0.5-1.5); FMetHb 0.6 % (0.3-1.12); FO2Hb 70.7 % (94-100); MINUTE VOLUME 12 L/min; PEEP 5 cm H2O; RESPIRATORY RATE 20 b/min; RESPIRATORY RATE (OBSERVED) 21 b/min; TIDAL VOLUME 500 mL; TOTAL HEMOGLOBIN 5.4 G/dl (12.0-16.0)
[2018-12-21 13:19] LABS: ALBUMIN 1.8 G/DL (3.4-5.0); ANION GAP 34 (8-16); BLOOD UREA NITROGEN 42 MG/DL (7-18); BUN/CREATININE RATIO 10.3 (6.6-38.0); CALCIUM 6.3 MG/DL (8.5-10.1); CHLORIDE 108 MMOL/L (99-107); CREATININE 4.08 MG/DL (0.40-0.90); GLUCOSE 86 MG/DL (70-104); SODIUM 150 MMOL/L (135-145); eGFR 11 ML/MIN
[2018-12-21] MEDS ORDERED: gelatin sponge, absorbable (Gelfoam 12-7MM) sponge TP ONE (13:45)
[2018-12-21] MEDS ORDERED: Duosol 4K/3 Ca (w/calcium) 5,000 ML HE SCH (13:59)
[2018-12-21] MEDS ORDERED: sodium phosphate inj. 30 MMOL in normal saline 250ml IV soln 250 ML IV PRN (14:00)
[2018-12-21] MEDS ORDERED: calcium chloride inj. 1,000 MG in normal saline 100ml IV soln 100 ML IV PRN (14:00)
[2018-12-21] MEDS ORDERED: magnesium 4gm in 100ml NS 100 ML IV PRN (14:00)
[2018-12-21] MEDS ORDERED: potassium Cl 20mEq/100mL bag 100 ML IV PRN (14:00)
[2018-12-21] MEDS ORDERED: citrate dextrose 1000ml IV sol 1,000 ML IV PRN (14:00)
[2018-12-21] MEDS ORDERED: calcium chloride inj. 10,000 MG in normal saline 500ml IV soln 400 ML IV PRN (14:00)
[2018-12-21 14:14] LABS: POTASSIUM 7.6 MMOL/L (3.5-5.1); TOTAL CARBON DIOXIDE 8.2 MMOL/L (24-32)
[2018-12-21] MEDS ORDERED: calcium chloride inj. 2,000 MG in normal saline 100ml IV soln 100 ML IV PRN (14:25)
[2018-12-21] MEDS ORDERED: calcium chloride inj. 2,000 MG in normal saline 100ml IV soln 80 ML IV PRN (14:25)
[2018-12-21] MEDS ORDERED: calcium gluconate inj. 1 GM in normal saline 100ml IV soln 90 ML IV ONE (14:30)
[2018-12-21] MEDS ORDERED: insulin regular, human 10 units/0.1 ml syringe IV ONE ×2 (14:30→16:05)
--- NOTE | 2018-12-21 15:00 | NUR ---
explained to daughter that mothers lab values are worse that this mornings, and no improvement has been noted
--- NOTE | 2018-12-21 15:00 | NUR ---
dr quinn and dr ashford at bedside talking to daughter about status of patient. daughter apprized of critical situation of mother and understanding noted.
[2018-12-21] MEDS ORDERED: normal saline 1000ml 100 ML IV PRN (15:21)
[2018-12-21] MEDS ORDERED: normal saline 1000ml 250 ML IV PRN (15:21)
[2018-12-21] MEDS ORDERED: albumin (human) 25% 100ml IV 100 ML IV PRN (15:25)
[2018-12-21] MEDS ORDERED: epoetin 20,000 units/ml inj IV ONE (15:25)
[2018-12-21] MEDS ORDERED: heparin 1,000 units/ml 10ml inj HE ONE ×2 (15:25)
[2018-12-21 15:41] LABS: ABG HCO3 8.1 mmol/L (22.0-26.0); ABG PCO2 (T) 38.2 mmHg (35.0-45.0); ABG PH (T) 6.945 (7.350-7.450); ABG PO2 (T) 55.5 mmHg (83-108); MINUTE VOLUME 11 L/min; PEEP 5 cm H2O; RESPIRATORY RATE 22 b/min; RESPIRATORY RATE (OBSERVED) 22 b/min; TIDAL VOLUME 500 mL; TOTAL HEMOGLOBIN < 4.7 G/dl (12.0-16.0)
[2018-12-21 15:57] LABS: ALBUMIN 1.4 G/DL (3.4-5.0); ANION GAP 38 (8-16); BLOOD UREA NITROGEN 41 MG/DL (7-18); BUN/CREATININE RATIO 9.7 (6.6-38.0); CALCIUM 8.5 MG/DL (8.5-10.1); CHLORIDE 107 MMOL/L (99-107); CREATININE 4.23 MG/DL (0.40-0.90); GLUCOSE 166 MG/DL (70-104); SODIUM 154 MMOL/L (135-145); eGFR 11 ML/MIN
--- NOTE | 2018-12-21 16:00 | NUR ---
explanation to daughter about worsening lab values, and that her heart is being affected by the high value of potassium.
[2018-12-21 16:09] LABS: MEAN CORPUSCULAR HEMOGLOBIN 30.1 PG (27.0-31.0); MEAN CORPUSCULAR HGB CONC 31.2 g/dL (33.0-36.5); MEAN CORPUSCULAR VOLUME 96.6 FL (78-98); MEAN PLATELET VOLUME 8.8 FL (7.4-10.4); RED BLOOD COUNT 1.38 X10'6 (4.20-5.60); RED CELL DISTRIBUTION WIDTH 15.3 % (11.5-14.5)
[2018-12-21 16:37] LABS: NUCLEATED RED BLOOD CELLS 39 /100WBC (0-0); TOTAL CELLS COUNTED 100
[2018-12-21 16:41] LABS: ANISOCYTOSIS 1+; PLATELET ESTIMATE DECREASED
[2018-12-21 16:42] LABS: EOSINOPHILS # (AUTO) 0.1 X10'3 (0-0.9); LYMPHOCYTES # (AUTO) 0.9 X10'3 (1.1-4.8); MONOCYTES # (AUTO) 0.1 X10'3 (0-0.9); NEUTROPHILS # (AUTO) 2.7 X10'3 (1.8-7.7); WHITE BLOOD COUNT 3.8 X10'3 (4.5-11.0)
[2018-12-21 16:44] LABS: BASOPHILS % (AUTO) 0.4 % (0-1); EOSINOPHILS % (AUTO) 3.9 % (0-6); LYMPHOCYTES % (AUTO) 24.1 % (21-51); MEAN CORPUSCULAR HEMOGLOBIN 30.3 PG (27.0-31.0); MEAN CORPUSCULAR HGB CONC 31.9 g/dL (33.0-36.5); MEAN CORPUSCULAR VOLUME 94.9 FL (78-98); MEAN PLATELET VOLUME 8.6 FL (7.4-10.4); MONOCYTES % (AUTO) 2.1 % (2-12); NEUTROPHILS % (AUTO) 69.5 % (42-75); RED BLOOD COUNT 1.24 X10'6 (4.20-5.60)
[2018-12-21] MEDS ORDERED: vasoPRESSIN 20 units/ml inj. ONE (16:44)
[2018-12-21 16:46] LABS: HEMATOCRIT 11.7 % (35.0-45.0); HEMOGLOBIN 3.7 g/dl (12.0-16.0)
[2018-12-21 16:47] LABS: PLATELET COUNT 37 X10'3 (140-440)
[2018-12-21 16:49] LABS: WHITE BLOOD COUNT 3.4 X10'3 (4.5-11.0)
[2018-12-21 16:50] LABS: HEMATOCRIT 13.3 % (35.0-45.0); HEMOGLOBIN 4.2 g/dl (12.0-16.0)
[2018-12-21 16:51] LABS: PLATELET COUNT 45 X10'3 (140-440)
--- NOTE | 2018-12-21 17:00 | NUR ---
hemo dialysis in progress, will draw labs as ordered at 90 mins
[2018-12-21] MEDS: VASOPRESSIN IV SCH (17:05)
[2018-12-21] MEDS: NS IV SCH (17:05)
--- NOTE | 2018-12-21 17:14 | NUR ---
called placed to dr quinn, updated on labs, and current vital signs, CO of 1.5 and at times not reading. new orders obtained, page placed to dr ashford,
--- NOTE | 2018-12-21 18:00 | NUR ---
received call from dr barnhart, informed of latest vitals signs, labs and overall status of patient. Informed of recent completed blood transfusion of 4 units of PRBC and [address] Barnhart states that he will not take patient to surgery at this point, and will wait until dialysis is complete and come by and see patient. Dr Barnhart states to tell daughter that surgery will not happen right now.
--- NOTE | 2018-12-21 18:30 | NUR ---
Patient in room CICU 2013. I have received report from Ashley MANN and had the opportunity to ask questions and assume patient care. Unable to obtain O2 sat. On 100% FiO2. Arterial line waveform dampened, attempting to obtain BP via doppler. Titrating pressors,awaiting lab results.
[2018-12-21 18:43] LABS: EOSINOPHILS # (AUTO) 0.1 X10'3 (0-0.9)
[2018-12-21] MEDS ORDERED: NORepinephrine 8mg/ 250ml NS 250 ML IV SCH (18:45)
[2018-12-21] MEDS ORDERED: vasopressin inj. 20 UNIT in normal saline 100ml IV soln 39 ML IV SCH (18:45)
[2018-12-21 18:54] LABS: BASOPHILS % (AUTO) 0.3 % (0-1); EOSINOPHILS % (AUTO) 3.9 % (0-6); HEMATOCRIT 25.4 % (35.0-45.0); HEMOGLOBIN 8.4 g/dl (12.0-16.0); LYMPHOCYTES # (AUTO) 0.9 X10'3 (1.1-4.8); LYMPHOCYTES % (AUTO) 27.4 % (21-51); MEAN CORPUSCULAR HEMOGLOBIN 30.5 PG (27.0-31.0); MEAN CORPUSCULAR HGB CONC 32.9 g/dL (33.0-36.5); MEAN CORPUSCULAR VOLUME 92.8 FL (78-98); MEAN PLATELET VOLUME 8.3 FL (7.4-10.4); MONOCYTES % (AUTO) 1.4 % (2-12); NEUTROPHILS # (AUTO) 2.1 X10'3 (1.8-7.7); PLATELET COUNT 82 X10'3 (140-440); RED BLOOD COUNT 2.74 X10'6 (4.20-5.60); RED CELL DISTRIBUTION WIDTH 14.3 % (11.5-14.5); WHITE BLOOD COUNT 3.1 X10'3 (4.5-11.0)
[2018-12-21 19:01] LABS: PLATELET COUNT 82 X10'3 (140-440)
[2018-12-21] MEDS ORDERED: DOBUTamine-DoBUTrex 500mg/D5W 250 ML IV SCH (19:05)
[2018-12-21] MEDS ORDERED: epiNEPHrine inj 5 MG, calcium chloride inj. 1,000 MG in normal saline 250ml IV soln 235 ML IV PRN (19:05)
[2018-12-21 19:06] LABS: ABG BASE EXCESS -21.9 mmol/L (-2.0-3.0); ABG HCO3 12.1 mmol/L (22.0-26.0); ABG OXYGEN SATURATION 77.1 % (95-98); ABG PCO2 (T) 74.1 mmHg (35.0-45.0); ABG PH (T) 6.816 (7.350-7.450); ABG PO2 (T) 58.2 mmHg (83-108); FCOHb 0.3 % (0.5-1.5); FMetHb 0.1 % (0.3-1.12); FO2Hb 76.8 % (94-100); MINUTE VOLUME 9 L/min; PATIENT TEMPERATURE 35.1; PEEP 5 cm H2O; RESPIRATORY RATE 22 b/min; RESPIRATORY RATE (OBSERVED) 22 b/min; TIDAL VOLUME 600 mL; TOTAL HEMOGLOBIN 8.9 G/dl (12.0-16.0)
--- NOTE | 2018-12-21 19:15 | NUR ---
1839: Pt's rhythm widened, unable to obtain pulse.determined to be in PEA. Code Blue called. Epi and Calcium given IV. Titrating pressors, unable to obtain blood pressure from arterial line of NBP cuff. Dr. Hurd and Dr. Melvin at bedside. Orders received. 1899: Pts rhythm widened, again unable to obtain pulse. Epi and calcium given. Titrating pressors. Dr. Melvin and Bronwyn at bedside. MD's updated of current lab results. Orders received. Pulse detected by arterial waveform. 1914: Pt back in PEA. See code blue record for ACLS meds. Blood transfusing. Dr. Melvin spoke to patient's daughter, code status changed to DNR.
[2018-12-21 19:16] LABS: D-DIMER 11.41 MG/L FEU (0-0.50)
[2018-12-21 19:19] LABS: PARTIAL THROMBOPLASTIN TIME 83 SECONDS (22-32)
[2018-12-21] MEDS ORDERED: hydrocortisone sod succ/PF 100mg/2ml inj. IV SCH (20:00)
[2018-12-21] MEDS: normal saline 1000ml 1,000 ML IV SCH (20:56)
--- NOTE | 2018-12-21 21:31 | NUR ---
RN IS TO DOCUMENT YES TO ALL APPLICABLE AREAS Pronouncement of : 1. Time Physician Notified:[id number] 2. Date of :12/21/18 3. Time of : 2130 4. DNR/Withdraw life support documented:y 5. Monitor strip has been placed on chart:y 6. Assessment process is of one-minute duration and includes following criteria: a) Patient is unresponsive to all stimuli:y b) Pupils fixed and non-reactive:y c) Auscultation of precordium reveals absence of heart tones:y d) Auscultation of lungs reveals absence of breath sounds:y e) Absence of blood pressure / all vital signs:y f) QRS complexes are not present on monitor / EKG strip:y g) Pacer spikes without capture:N/A 4. Comments:[employer] notified, ruled out patient as donor. Ref#[id number].
--- NOTE | 2018-12-21 23:56 | NUR ---
Pt to mortuary. No belongings. Pt's daughter states that all belongings had already been sent home previously.
[2018-12-22] MEDS ORDERED: fluconazole-Diflucan 100MG/NS 50 ML IV SCH (08:00)
[2018-12-22] MEDS ORDERED: fluconazole-Diflucan 200mg/NS 100 ML IV SCH (08:00)
[2018-12-23] MEDS ORDERED: VANCOMYCIN LEVEL IV ONE (09:30)
[2018-12-24] MEDS ORDERED: VANCOMYCIN LEVEL IV ONE (09:30)
== END 2018-12-21 21:35 | disposition expired | DRG 853 ==
LOC: PAS 10:14 → SUR 3N 10:15 → PAS 10:15 → SUR 3N 15:04 → CICU 2S 12-20 10:45
PROVIDERS: ADMIT Obstetrics & Gynecology Obstetrics; ATTEND Surgery
PROC: 0DNU0ZZ Release Omentum, Open Approach (ICD-10-PCS; 2018-12-18)
PROC: 5A09357 Assistance with Respiratory Ventilation, Less than 24 Consecutive Hours, Continuous Positive Airway Pressure (ICD-10-PCS; 2018-12-19)
PROC: 0UB10ZZ Excision of Left Ovary, Open Approach (ICD-10-PCS; 2018-12-20)
PROC: 0TQB0ZZ Repair Bladder, Open Approach (ICD-10-PCS; 2018-12-20)
PROC: 03H Upper Arteries, Insertion (ICD-10-PCS; 2018-12-20)
PROC: 02HV33Z Insertion of Infusion Device into Superior Vena Cava, Percutaneous Approach (ICD-10-PCS; 2018-12-20)
PROC: B548ZZA Ultrasonography of Superior Vena Cava, Guidance (ICD-10-PCS; 2018-12-20)
PROC: 5A12012 Performance of Cardiac Output, Single, Manual (ICD-10-PCS; 2018-12-20)
PROC: 30233N1 Transfusion of Nonautologous Red Blood Cells into Peripheral Vein, Percutaneous Approach (ICD-10-PCS; 2018-12-20)
PROC: 5A1935Z Respiratory Ventilation, Less than 24 Consecutive Hours (ICD-10-PCS; 2018-12-20)
PROC: 0BH17EZ Insertion of Endotracheal Airway into Trachea, Via Natural or Artificial Opening (ICD-10-PCS; 2018-12-20)
PROC: 0DNN0ZZ Release Sigmoid Colon, Open Approach (ICD-10-PCS; principal; 2018-12-20 15:42)
PROC: 02HV33Z Insertion of Infusion Device into Superior Vena Cava, Percutaneous Approach (ICD-10-PCS; 2018-12-21)
PROC: 30233R1 Transfusion of Nonautologous Platelets into Peripheral Vein, Percutaneous Approach (ICD-10-PCS; 2018-12-21)
PROC: 30233N1 Transfusion of Nonautologous Red Blood Cells into Peripheral Vein, Percutaneous Approach (ICD-10-PCS; 2018-12-21)
DX: A41.9 Sepsis, unspecified organism (principal); D65 Disseminated intravascular coagulation [defibrination syndrome]; K65.9 Peritonitis, unspecified; R65.21 Severe sepsis with septic shock; I96 Gangrene, not elsewhere classified; N17.9 Acute kidney failure, unspecified; S37.19XA Other injury of ureter, initial encounter; S37.23XA Laceration of bladder, initial encounter; Z93.3 Colostomy status; N83.292 Other ovarian cyst, left side; N83.209 Unspecified ovarian cyst, unspecified side; I10 Essential (primary) hypertension; I49.8 Other specified cardiac arrhythmias; J44.9 Chronic obstructive pulmonary disease, unspecified; R19.00 Intra-abdominal and pelvic swelling, mass and lump, unspecified site; K66.0 Peritoneal adhesions (postprocedural) (postinfection); Z85.038 Personal history of other malignant neoplasm of large intestine; Z87.891 Personal history of nicotine dependence; Z90.721 Acquired absence of ovaries, unilateral; Z99.2 Dependence on renal dialysis
CPT/HCPCS: 36415; 36600; 71045; 71046; 74018; 74176; 76830; 76856; 80047; 80048; 80053; 81001; 82330; 82570; 82800; 82803; 82810; 82948; 83605; 83735; 83935; 84100; 84145; 84300; 85018; 85025; 85379; 85384; 85610; 85730; 86885; 86900; 86901; 86920; 87040; 87077; 87088; 87186; 88305; 88307; 90935; 93005; 94002; 94003; 94760; A4215; A4618; A6253; A6258; A6449; A7000; G0257; G0378; J0171; J0610; J0694; J1100; J1170; J1250; J1450; J1580; J1644; J1815; J1885; J1940; J2001; J2175; J2250; J2270; J2370; J2405; J2543; J2704; J2710; J2765; J3010; J3370; J3490; J7030; J7040; J7050; J7120; P9016; P9035; P9045; P9047; Q4081; Q9963